=== PATIENT | male | born 1960 | race American Indian/Alaskan Native ===

== ENCOUNTER 2016-06-12 17:54 | Emergency (ER) | payer OTHER ==
[2016-06-12 18:18] VITALS: BP 145/86
--- NOTE | 2016-06-12 19:56 | EDM.PDOC ---
ED HPI Trauma - General Chief Complaint: Upper Extremity Injury/Pain Stated Complaint: ARM PAIN Time Seen by Provider: 06/12/16 19:54 Source: Reports: Patient History Limitations: Reports: No limitations - History of Present Illness INITIAL COMMENTS - FREE TEXT/NARRATIVE: s/p right wrist surgery Apr-, fell onto right arm ANESTHESIOLOGIST worried might have loosen something, no great pain at present & still wearing a brace till Allergies/ADRs: Allergies Penicillins Allergy (Verified 04/10/16 23:18) Cannot Remember Home Medications: Ambulatory Orders Lisinopril 5 mg PO DAILY 04/10/16 [Confirmed 04/10/16] Past Medical History Cardiovascular History: Reports: Hypertension - Past Surgical History Musculoskeletal Surgical History: Reports: Other (see below) Other Musculoskeletal Surgeries/Procedures:: right elbow Social & Family History - Tobacco Use Smoking Status *Q: Former Smoker Years of Tobacco use: 20 Used Tobacco, but Quit: Yes Month Tobacco Last Used: feb 2016 Second Hand Smoke Exposure: No - Caffeine Use Caffeine Use: Reports: Coffee - Alcohol Use Days Per Week of Alcohol Use: 2 Number of Drinks Per Day: 4 Total Drinks Per Week: 8 - Recreational Drug Use Recreational Drug Use: No Review of Systems - Review of Systems Review Of Systems: ROS reveals no pertinent complaints other than HPI. Trauma Exam - Physical Exam Exam: See Below Exam Limited By: No limitations General Appearance: Reports: alert, WD/WN, no apparent distress Head: Reports: atraumatic Ears: Reports: hearing grossly normal Throat/Mouth: Reports: Normal voice, No airway compromise Neck: Reports: non-tender, full range of motion Respiratory Exam: Reports: no respiratory distress, no accessory muscle use Cardiovascular: Reports: regular rate, rhythm GI/Abdominal: Reports: soft, non tender Extremities: Reports: tenderness, other (right wrist NV wnl, no s/s infection). Denies: pain with movement Neurologic: Reports: no motor/sensory deficits, alert, normal mood/affect, oriented x 3 Skin: Reports: Normal color, Warm/dry Course - Vital Signs Last Recorded V/S: Last Vital Signs Temp 36.8 C 06/12/16 18:17 Pulse 88 06/12/16 18:17 Resp 16 06/12/16 18:17 BP 145/86 H 06/12/16 18:17 Pulse Ox 98 06/12/16 18:17 - Orders/Labs/Meds Orders: Active Orders 24 hr Category Date Time Status Wrist Comp Min 3V Rt [CR] Urgent Exams 06/12/16 18:27 Taken - Re-Assessments/Exams Free Text/Narrative Re-Assessment/Exam: 06/12/16 20:00 results discussed with pt. Departure - Departure Time of Disposition: 20:00 Disposition: Home, Self-Care 01 Condition: good Clinical Impression: Contusion of right wrist Qualifiers: Encounter type: initial encounter Qualified Code(s): S60.211A - Contusion of right wrist, initial encounter Instructions: Wrist Pain, [id number] Forms: ED Department Discharge Additional Instructions: 1) continue wearing brace 2) follow up with ORTHOPEDIST 3) recheck as needed
== END 2016-06-12 20:09 | disposition home or self-care (01) ==
LOC: DL.ED 17:54
DX: S60.211A Contusion of right wrist, initial encounter (principal); I10 Essential (primary) hypertension; Z88.0 Allergy status to penicillin; Z87.891 Personal history of nicotine dependence; W01.0XXA Fall on same level from slipping, tripping and stumbling without subsequent striking against object, initial encounter
CPT/HCPCS: 73110-RT; 99282; 99283

== ENCOUNTER 2016-09-10 15:21 | Inpatient (IN) | payer OTHER ==
--- NOTE | 2016-09-10 17:57 | EDM.PDOC ---
ED HPI GENERAL MEDICAL PROBLEM - General Chief Complaint: General Stated Complaint: ACHY,HEADACHE, [id number] Time Seen by Provider: 09/10/16 17:40 Source of Information: Reports: Patient History Limitations: Reports: No Limitations - History of Present Illness INITIAL COMMENTS - FREE TEXT/NARRATIVE: Patient comes emergency Department today with complaints of body aches headache abdominal bloating that has been going on for the past week. He has been unable to be seen for this as he has been working. It is not getting worse. He complains of wishy-washy headache type sensation. No photophobia or phonophobia. Denies any recent trauma to his head. He denies any nausea or vomiting. Denies any ear pain type pain or sinus congestion. He does complain of somewhat of a sore throat. No chest pain no shortness of breath or cough. He really does not complain of any abdominal pain just more abdominal bloating cramping sensation. He has not had any diarrhea. Nausea had any surgeries on his abdomen in the past. He denies any flank pain. He denies any hematuria dysuria or urinary frequency. He has not taken anything for his fever. He complains of generalized body aches and malaise. Head Pain Score (Numeric/FACES): 0 - Related Data Allergies Allergy/AdvReac Type Severity Reaction Status Date / Time Penicillins Allergy Cannot Verified 09/10/16 16:23 Remember Home Meds: Home Meds Lisinopril 5 mg PO DAILY 04/10/16 [History] Multivitamin [Multi-Day Vitamins] 1 each PO DAILY 09/10/16 [History] Past Medical History HEENT History: Reports: Hard of Hearing Cardiovascular History: Reports: Hypertension Respiratory History: Reports: None Gastrointestinal History: Reports: None Genitourinary History: Reports: None Neurological History: Reports: None Psychiatric History: Reports: None Endocrine/Metabolic History: Reports: None Hematologic History: Reports: None Immunologic History: Reports: None Oncologic (Cancer) History: Reports: None Dermatologic History: Reports: None - Infectious Disease History Infectious Disease History: Reports: None - Past Surgical History Head Surgeries/Procedures: Reports: None Musculoskeletal Surgical History: Reports: Other (See Below) Other Musculoskeletal Surgeries/Procedures:: pins in the right wrist Social & Family History - Tobacco Use Smoking Status *Q: Never Smoker Years of Tobacco use: 20 Used Tobacco, but Quit: Yes Month Tobacco Last Used: feb 2016 Second Hand Smoke Exposure: No - Caffeine Use Caffeine Use: Reports: Coffee - Alcohol Use Days Per Week of Alcohol Use: 2 Number of Drinks Per Day: 4 Total Drinks Per Week: 8 - Recreational Drug Use Recreational Drug Use: No ED ROS GENERAL - Review of Systems Review Of Systems: ROS reveals no pertinent complaints other than HPI. ED EXAM, GENERAL - Physical Exam Exam: See Below Exam Limited By: No Limitations General Appearance: Alert, WD/WN, No Apparent Distress Eye Exam: Bilateral Eye: Normal Inspection Ears: Normal External Exam, Normal Canal, Normal TMs Ear Exam: Bilateral Ear: Canal Normal, TM normal Nose: Normal Inspection, Normal Mucosa, No Blood Throat/Mouth: Normal Lips, Normal Teeth, Normal Gums, Normal Voice, No Airway Compromise, Other (Mild bilateral tonsillar erythema without swelling or exudate ) Head: Atraumatic, Normocephalic Neck: Non-Tender, Full Range of Motion, Lymphadenopathy (L), Lymphadenopathy (R ) (Tonsillar adenopathy). No: Tender Lateral Respiratory/Chest: No Respiratory Distress, Lungs Clear, Normal Breath Sounds, No Accessory Muscle Use, Chest Non-Tender Cardiovascular: Normal Peripheral Pulses, Regular Rate, Rhythm, No Edema GI/Abdominal: Normal Bowel Sounds, Soft, Non-Tender, No Organomegaly, No Distention, No Abnormal Bruit, No Mass, Pelvis Stable (Male) Exam: Deferred Rectal (Males) Exam: Deferred Back Exam: Normal Inspection. No: CVA Tenderness (L), CVA Tenderness (R) Extremities: Normal Inspection, Normal Range of Motion, Non-Tender, Normal Capillary Refill Neurological: Alert, Oriented, CN II-XII Intact, Normal Cognition, Normal Gait, Normal Reflexes, No Motor/Sensory Deficits Psychiatric: Normal Affect Skin Exam: Warm, Dry, Intact, Normal Color Lymphatic: No Adenopathy Course - Vital Signs Last Recorded V/S: Last Vital Signs Temp 37.8 C 09/10/16 16:18 Pulse 92 09/10/16 16:18 Resp 16 09/10/16 16:18 BP 120/72 09/10/16 16:18 Pulse Ox 98 09/10/16 16:18 - Orders/Labs/Meds Orders: Active Orders 24 hr Category Date Time Status CULTURE STREP A CONFIRMATION [RM] Stat Lab 09/10/16 17:07 Results STREP SCRN A RAPID W CULT CONF [RM] Stat Lab 09/10/16 17:07 Results Labs: Laboratory Tests 09/10/16 09/10/16 09/10/16 Range/Units 18:01 18:11 18:11 WBC 6.8 (5.0-10.0) 10^3/uL RBC 4.39 L (4.6-6.2) 10^6/uL Hgb 13.8 L (14.0-18.0) g/dL Hct 40.0 (40.0-54.0) % MCV 91.1 (80-100) fL MCH 31.4 (27.0-34.0) pg MCHC 34.5 (33.0-35.0) g/dL Plt Count 211 (150-450) 10^3/uL Neut % (Auto) 74.2 (42.2-75.2) % Lymph % (Auto) 15.4 L (20.5-50.1) % [place] % (Auto) 10.3 H (2-8) % Eos % (Auto) 0.0 L (1.0-3.0) % Baso % (Auto) 0.1 (0.0-1.0) % Sodium 126 L (135-145) mmol/L Potassium 4.3 (3.6-5.0) mmol/L Chloride 95 L (101-111) mmol/L Carbon Dioxide 19.0 L (21.0-31.0) mmol/L Anion Gap 16.3 BUN 18 (7-18) mg/dL Creatinine 1.2 (0.6-1.3) mg/dL Est Cr Clr Drug Dosing 59.08 mL/min Estimated GFR (MDRD) > 60 BUN/Creatinine Ratio 15.00 Glucose 108 H (74-105) mg/dL Calcium 9.1 (8.4-10.2) mg/dl Total Bilirubin 0.7 (0.2-1.0) mg/dL AST 16 (10-42) IU/L ALT 14 (10-60) IU/L Alkaline Phosphatase 98 (42-121) IU/L C-Reactive Protein (0.0-1.3) mg/dL Total Protein 8.8 H (6.7-8.2) g/dl Albumin 4.3 (3.2-5.5) g/dl Globulin 4.5 Albumin/Globulin Ratio 0.96 Urine Color Dark yellow (YELLOW) Urine Appearance Clear (CLEAR) Urine pH 5.5 (5.0-9.0) Ur Specific [place] 1.020 (1.005-1.030) Urine Protein 30 H (NEGATIVE) Urine Glucose (UA) Negative (NEGATIVE) Urine Ketones 15 H (NEGATIVE) Urine Occult Blood Negative (NEGATIVE) Urine Nitrite Negative (NEGATIVE) Urine Bilirubin Small H (NEGATIVE) Urine Urobilinogen 0.2 (0.2-1.0) mg/dL Ur Leukocyte Esterase Negative (NEGATIVE) Urine RBC 0-5 /HPF Urine WBC 0-5 (0-5/HPF) /HPF Ur Epithelial Cells Rare /HPF Urine Bacteria Many H (0-FEW/HPF) /HPF Urine Mucus Moderate H /LPF 09/10/16 Range/Units 18:11 WBC (5.0-10.0) 10^3/uL RBC (4.6-6.2) 10^6/uL Hgb (14.0-18.0) g/dL Hct (40.0-54.0) % MCV (80-100) fL MCH (27.0-34.0) pg MCHC (33.0-35.0) g/dL Plt Count (150-450) 10^3/uL Neut % (Auto) (42.2-75.2) % Lymph % (Auto) (20.5-50.1) % [place] % (Auto) (2-8) % Eos % (Auto) (1.0-3.0) % Baso % (Auto) (0.0-1.0) % Sodium (135-145) mmol/L Potassium (3.6-5.0) mmol/L Chloride (101-111) mmol/L Carbon Dioxide (21.0-31.0) mmol/L Anion Gap BUN (7-18) mg/dL Creatinine (0.6-1.3) mg/dL Est Cr Clr Drug Dosing mL/min Estimated GFR (MDRD) BUN/Creatinine Ratio Glucose (74-105) mg/dL Calcium (8.4-10.2) mg/dl Total Bilirubin (0.2-1.0) mg/dL AST (10-42) IU/L ALT (10-60) IU/L Alkaline Phosphatase (42-121) IU/L C-Reactive Protein 11.0 H (0.0-1.3) mg/dL Total Protein (6.7-8.2) g/dl Albumin (3.2-5.5) g/dl Globulin Albumin/Globulin Ratio Urine Color (YELLOW) Urine Appearance (CLEAR) Urine pH (5.0-9.0) Ur Specific [place] (1.005-1.030) Urine Protein (NEGATIVE) Urine Glucose (UA) (NEGATIVE) Urine Ketones (NEGATIVE) Urine Occult Blood (NEGATIVE) Urine Nitrite (NEGATIVE) Urine Bilirubin (NEGATIVE) Urine Urobilinogen (0.2-1.0) mg/dL Ur Leukocyte Esterase (NEGATIVE) Urine RBC /HPF Urine WBC (0-5/HPF) /HPF Ur Epithelial Cells /HPF Urine Bacteria (0-FEW/HPF) /HPF Urine Mucus /LPF - Re-Assessments/Exams Free Text/Narrative Re-Assessment/Exam: 09/10/16 19:22 Negative strep screen as well as influenza. His CBC is unremarkable. CMP is hyponatremia with a quite elevated C-reactive protein as well. I am unsure of what is causing his elevation of the C-reactive protein auras hyponatremia I wonder if this is not a viral type illness with some dehydration. Although with the quite low sodium and the elevated CRP think further evaluation is care is warranted at this time. I did speak with the hospitalist type disk quality control supervisor who accepted this patient into his services for inpatient management and further evaluation and care. Plan of care discussed with the patient is comfortable with this plan. Departure - Departure Time of Disposition: 19:15 Disposition: Admitted As Inpatient 65 Clinical Impression: Hyponatremia, CRP elevated - Discharge Information Forms: ED Department Discharge ED Communication - Discussed Case With (1) Discussed Case With (1): Admitting Provider (Spoke with DR. Rubio about my concerns of the hyponatremia as well as elevated CRP will admit inpatient for further care and evaluation.) - My Orders Last 24 Hours: My Active Orders 09/10/16 17:07 CULTURE STREP A CONFIRMATION [RM] Stat STREP SCRN A RAPID W CULT CONF [RM] Stat - Assessment/Plan Last 24 Hours: My Active Orders 09/10/16 17:07 CULTURE STREP A CONFIRMATION [RM] Stat STREP SCRN A RAPID W CULT CONF [RM] Stat Assessment:: hyponatremia Elevated CRP unknown origin. ? VIral illness. Plan: Admit to hospital inpatient under the care of Dr. Rubio for further care evaluation and IV fluid administration.
[2016-09-10 18:40] LABS: CHLORIDE,CL 95 mmol/L (101-111); SODIUM,NA 126 mmol/L (135-145)
[2016-09-10] MEDS ORDERED: Sodium Chloride 0.9% 10 ML Syringe FLUSH PRN (19:23)
[2016-09-10] MEDS ORDERED: oxyCODONE 5 MG Tab PO PRN (19:47)
[2016-09-10] MEDS ORDERED: Iopamidol 612 MG/ML 50 ML SDV IVPUSH ONE (20:06)
[2016-09-10] MEDS: Multivitamins,Therapeutic Tab PO SCH (20:24)
[2016-09-10] MEDS: Sodium Chloride 0.9% 1,000 ML IV SCH (20:24)
--- NOTE | 2016-09-10 22:31 | HP ---
CHIEF COMPLAINT: Arthralgias and headache. HISTORY OF PRESENT ILLNESS: The patient is a 56-year-old gentleman who was admitted through the emergency room because the patient has been complaining of generalized body aches, some headache, abdominal bloating, and also some feeling chilly that have been going on for the last 1 week. He usually feels good all the time, but for the last 1 week, he has not been feeling good. He also felt that his throat was a little bit scratchy, but he denies any focal weakness, double vision, chest pain, shortness of breath, diarrhea, dysuria, melena, hematochezia, or any other complaints. Because of the above symptoms, he was seen in the emergency room, and in the emergency room, the patient was noted to have hyponatremia and significantly elevated CRP, and the patient was then admitted for further evaluation and management. PAST MEDICAL HISTORY: Remarkable for hypertension. FAMILY HISTORY: Noncontributory. HOME MEDICATIONS: 1. Lisinopril. 2. Multivitamin. ALLERGIES: Penicillin. SOCIAL HISTORY: The patient is a nonsmoker and used to drink alcohol, but quit drinking alcohol since April. No illicit drug use. REVIEW OF SYSTEMS: As in HPI. The rest of the review of systems is negative. PHYSICAL EXAMINATION: General: A very pleasant gentleman. He is alert, oriented, ambulatory, and not in any acute distress. Vital Signs: Blood pressure is 120/72, pulse of 92, and respirations 16. SHEENT: Normocephalic. Pupils equal. Extraocular muscles are intact. There is no scalp tenderness. Neck: Supple. Heart: Regular rate and rhythm. Normal S1 and S2. No gallops. No rubs. Lungs: Equal bilaterally. No crackles. No wheezing. Abdomen: Moderately obese, soft, and nontender. Bowel sounds positive. Extremities: Negative for any pedal edema. No calf tenderness. No gross deformities. Neurologic: Nonfocal. LAB WORKUP: CBC; WBCs 6.8, hemoglobin is 13.8, hematocrit is 40, and platelets 211. Comp panel; sodium is 126, chloride of 95, carbon dioxide of 19, and glucose is 108. The rest of the panel unremarkable. C-reactive protein is 11. Urinalysis has 30 mg of protein and 15 ketones. Rapid strep throat is negative. ADMITTING DIAGNOSES AND PLAN: 1. Headache and arthralgias, etiology undetermined. His influenza screen was also negative. I am going to check for sedimentation rate to see if this is also elevated. I am going to do some blood cultures in him. We will also order a CAT scan of the head, and we will send YENNIFER and rheumatoid factor because this could be autoimmune too. 2. Hyponatremia. We will give him some IV fluids. 3. Hypertension. We will resume his lisinopril as at home, and the rest of the management as necessary. [facility] /[id number]
[2016-09-11] MEDS: Acetaminophen 325 MG Tab PO PRN ×2 (04:17→11:16)
[2016-09-11] MEDS: Sodium Chloride 0.9% 1,000 ML IV SCH ×3 (04:22→20:43)
[2016-09-11 08:06] LABS: CHLORIDE,CL 101 mmol/L (101-111); SODIUM,NA 129 mmol/L (135-145)
[2016-09-11] MEDS ORDERED: prednisoLONE Soln 15 MG/5 ML UD Cup PO SCH (09:15)
--- NOTE | 2016-09-11 10:19 | PN ---
DATE: 09/11/2016 SUBJECTIVE: The patient this morning is feeling slightly better with regards to his headaches, but he is still achy allover. The patient denies though any focal weakness, double vision, but the patient had a temperature of 103 this morning. The patient denies any chest pain, cough, abdominal pain, dysuria, or any other complaints. LABORATORY DATA: Lab workup this morning, CBC; WBC is 4.9, hemoglobin is 13.1, hematocrit 37.9, and platelet is 168. Chem 6, sodium is 129, carbon dioxide of 19, and calcium of 8.2. C-reactive protein is 11.1 and sedimentation rate is 75. YENNIFER and rheumatoid factor still pending and CT scan of the head official report is still pending. OBJECTIVE: Vital Signs: Blood pressure is 96/58, pulse 66, respiration of 20, and temperature of 97.5. HEENT: Neck is supple. There is no scalp tenderness. No facial droop. Pupils are equal. Extraocular muscles are intact. Heart: Regular rate and rhythm. Normal S1 and S2. No gallops. No rubs. Lungs: Equal bilaterally. No crackles. No wheezing. Abdomen: Soft and nontender. Bowel sounds positive. Extremities: Negative for any pedal edema. No calf tenderness. Neurologic: Nonfocal. MEDICATIONS: Reviewed. PLAN: We will continue with free water intake restriction to 800 mL a day. We will continue with IV fluids to correct the hyponatremia. I am going to empirically try the patient on prednisone 20 mg a day and see if this is going to significantly improve patient's symptomatology. We will recheck a sedimentation rate tomorrow. [facility] /[id number]
[2016-09-11] MEDS: Lisinopril 5 MG Tab PO SCH (11:05)
[2016-09-11] MEDS: Multivitamins,Therapeutic Tab PO SCH (11:05)
[2016-09-11] MEDS: predniSONE 20 MG Tab PO SCH (12:29)
[2016-09-12] MEDS: Sodium Chloride 0.9% 1,000 ML IV SCH ×3 (04:44→12:52)
[2016-09-12] MEDS: predniSONE 20 MG Tab PO SCH (08:58)
[2016-09-12] MEDS: Multivitamins,Therapeutic Tab PO SCH (08:58)
[2016-09-12] MEDS: Lisinopril 5 MG Tab PO SCH (08:59)
[2016-09-12 18:06] VITALS: BP 128/66
--- NOTE | 2016-10-06 07:04 | DISCH ---
DISCHARGE DIAGNOSES: 1. Nonspecific illness consisting of myalgias and slight headache. 2. Hyponatremia. 3. Markedly elevated sed rate and CRP, nonspecific. 4. Negative rheumatoid factor and YENNIFER. 5. Hypertension by history, controlled. BRIEF HISTORY OF PRESENT ILLNESS: Mr. Draper is a 56-year-old gentleman, who presented to the Emergency Department. He stated that for the past week he had been having body aches and headaches with some abdominal bloating, not getting worse, not getting better. Headache was nonspecific. He had no associated symptoms such as photophobia or neck stiffness. No fever. Vague sore throat. No shortness of breath or chest pain. No abdominal pain, just bloating with some mild cramping, but no nausea vomiting, or diarrhea. No exposure to illness. No dysuria or hematuria. No other focal symptoms. Initial lab work did show a sodium of 126 and an elevated sed rate of 75 with a C-reactive protein of 11.0. Because of these, he was referred for admission for further evaluation. Pertinent labs and x-rays, CBC on day of admission showed a white count of 6.8 and on repeat 4.9. Differential was unremarkable. Monocytes were noted to be slightly elevated at 10%. Hemoglobin and hematocrit were 13 and 38 and platelets were normal. Initial sed rate was 75 mm/hour and recheck on day of discharge was 100 mm/hour. C-reactive protein was also elevated at 11.0 (0.0 to 1.3) mg/dL. Chemistry showed an admission sodium of 129, potassium 4.3, BUN and creatinine were 18 and 1.2 with a GFR of more than 60. LFTs were unremarkable. Albumin was 4.3. Urinalysis showed a dark yellow urine with a specific gravity of 1.020 with a negative microscopic exam and some bacteria. Rheumatoid factor was negative at less than 10 (10-14) International Units/mL. YENNIFER was also negative. A CT scan of the head was obtained in the Emergency Department. It was performed with and without intravenous contrast and was an unremarkable study. There was no bleed. No mass or mass effect. No hydrocephalus. No significant white matter disease and no acute intracranial processes were found. A rapid strep was performed in the Emergency Department, this was negative. A followup culture also showed no group A strep isolated. Influenza A and B were tested in the Emergency Department and these were also negative. HOSPITAL COURSE: Mr. Draper was admitted for further evaluation. He was given limited amount of fluids for his hyponatremia and was otherwise fluid restricted. He is given p.r.n. oxycodone for pain. His usual medications for hypertension were continued and he was started on a tapering dose of prednisone. He basically did well. He did not decline in anyway and it was felt that he could be safely discharged to home. On day of discharge, his symptoms were reviewed with him again and he said that for a week he had been achy in the arms and back. His head felt throbbing. He felt chilled, hot and cold at times. Denies sore throat or cough. He has not had the flu shot or the pneumonia vaccines. He no longer smokes. He stopped smoking about a year and half ago, and prior to that, smoked half a pack cigarettes a day. According to his history, he no longer drinks alcohol. There is no major contributing family history. At this point, we will discharge him to home for followup with these usual providers. Copies of discharge summary will be spent to [facility]. DISCHARGE MEDICATIONS: 1. Lisinopril 20 mg daily. 2. Multivitamin 1 tablet daily. It is difficult to state what the cause of this nonspecific illness was. The elevated CRP and sed rate could imply something like a polymyalgia rheumatica. This also could be due to some type of nonspecific viral illness as well. We strongly encouraged Mr. Draper to follow up as an outpatient for recheck of his labs. CONDITION AT THE TIME OF DISCHARGE: Hemodynamically and neurologically stable. Code status during this admission: Full code. [facility] /[id number] MTDD
== END 2016-09-12 18:40 | disposition home or self-care (01) | DRG 641 ==
LOC: DL.ED 15:21 → DL.MS 19:29 → UNDOADMIN 19:29 → DL.MS 19:47
PROVIDERS: ADMIT Internal Medicine; ATTEND Internal Medicine
DX: E87.1 Hypo-osmolality and hyponatremia (principal); R51 Headache; I10 Essential (primary) hypertension; Z87.891 Personal history of nicotine dependence; R14.0 Abdominal distension (gaseous); R52 Pain, unspecified; Z79.899 Other long term (current) drug therapy; Z88.0 Allergy status to penicillin; R79.89 Other specified abnormal findings of blood chemistry
CPT/HCPCS: 36415; 70470; 80048; 80053; 81001; 83735; 85025; 85651; 86038; 86140; 86431; 87081; 87430; 87804; 99284; A9270-GY; J7030; Q9967

== ENCOUNTER 2023-09-17 20:47 | Emergency (ER) | payer OTHER ==
[2023-09-17] MEDS: Sodium Chloride 0.9% 10 ML Syringe FLUSH PRN (21:13)
[2023-09-17 21:20] LABS: BASOPHILS PERCENT AUTO 0.4 % (0.0-1.0); EOSINOPHILS PERCENT AUTO 5.1 % (1.0-3.0); HEMATOCRIT 37.7 % (40.0-54.0); HEMOGLOBIN 12.5 g/dL (14.0-18.0); LYMPHOCYTES PERCENT AUTO 37.7 % (20.5-50.1); MEAN CORPUSCULAR HEMOGLOBIN 31.3 pg (27.0-34.0); MEAN CORPUSCULAR HGB CONC 33.2 g/dL (33.0-35.0); MEAN CORPUSCULAR VOLUME 94.3 fL (80-100); MONOCYTES PERCENT AUTO 8.1 % (2-8); NEUTROPHILS PERCENT AUTO 48.7 % (42.2-75.2); PLATELET COUNT,PLT 240 10^3/uL (150-450); WHITE BLOOD CELL COUNT,WBC 5.3 10^3/uL (5.0-10.0)
[2023-09-17 21:28] VITALS: BP 145/71; PULSE 60
[2023-09-17 21:39] LABS: A/G RATIO 0.7; ALANINE AMINOTRANSFERASE,ALT 33 U/L (16-63); ALBUMIN 3.4 g/dL (3.4-5.0); ALKALINE PHOSPHATASE 98 U/L (46-116); ANION GAP 10.2 mEq/L (7-13); ASPARTATE AMNIOTRANSFERASE,AST 14 U/L (15-37); BILIRUBIN TOTAL 0.2 mg/dL (0.2-1.0); BLOOD UREA NITROGEN,BUN 22 mg/dL (7-18); BUN/CREATININE RATIO 14.3 (No establ ref range); C-REACTIVE PROTEIN 2.16 ng/dL (<=0.50); CALCIUM 8.7 mg/dL (8.5-10.1); CARBON DIOXIDE,CO2 29 mmol/L (21-32); CHLORIDE,CL 106 mmol/L (98-107); CREATININE 1.54 mg/dL (0.70-1.30); EST CRCL DRUG DOSING (CG) 42.15 mL/min; GLUCOSE RANDOM 107 mg/dL (70-99); POTASSIUM,K 4.2 mmol/L (3.5-5.1); SODIUM,NA 141 mmol/L (136-145)
[2023-09-17 21:41] LABS: ESTIMATED GFR 50 mL/min (>=60)
[2023-09-17 21:42] LABS: PROTHROMBIN TIME 10.2 SEC (9.0-12.0)
[2023-09-17 21:44] LABS: LACTIC ACID 0.7 mmol/L (0.4-2.0)
[2023-09-17] MEDS: Iopamidol 612 MG/ML 100 ML Bottle IVPUSH ONE (21:50)
[2023-09-17] MEDS: Sodium Chloride 0.9% 1,000 ML IV ONE (22:17)
[2023-09-17] MEDS: Sulfamethoxazole/Trimethoprim 800-160 MG Tab PO ONE (22:23)
== END 2023-09-17 22:55 | disposition home or self-care (01) ==
LOC: DL.ED 20:47
DX: L03.311 Cellulitis of abdominal wall (principal); E66.9 Obesity, unspecified; Z88.0 Allergy status to penicillin; Z79.899 Other long term (current) drug therapy; Z68.31 Body mass index [BMI] 31.0-31.9, adult
CPT/HCPCS: 36415; 74177; 80053; 83605; 84145; 85025; 85610; 86140; 87040; 99284; A9270; J7030; Q9967; J3490